=== PATIENT | male | born 1970 | race Caucasian/White ===

== ENCOUNTER 2018-05-22 07:25 | Day surgery (SDC) | payer BC ==
[2018-05-21 11:39] VITALS: BMI 29.2
[2018-05-22 10:00] VITALS: TEMP 97.5
[2018-05-22 10:42] VITALS: BP 124/78; PULSE 55
--- NOTE | 2018-05-27 14:54 | PATH ---
Surgical Pathology Report Patient Name: KENDAL HOLLAND [facility]. Rec. #: [id number] /Age/Gender: 1970 (Age: 48) / M Account: [id number] Location: [facility]-ENDOSCOPY Taken: 05/22/2018 Received: 05/22/2018 Reported: 05/27/2018 Physicians: Natanael Alejandre M.D. Specimen(s) Received A: SECOND PORTION DUODENUM AND DUODENAL BULB B: ANTRUM C: DISTAL ESOPHAGUS Clinical History Abdominal pain/colon cancer screening Postoperative findings: Hiatal hernia, GERD, normal colon, colon cancer screening Final Diagnosis A., SECOND PORTION DUODENUM AND DUODENAL BULB, BIOPSY: MODERATE CHRONIC DUODENITIS. B. ANTRUM, BIOPSY: MILD CHRONIC GASTRITIS. IMMUNOSTAIN IS NEGATIVE FOR H. PYLORI ORGANISMS. C. DISTAL ESOPHAGUS, BIOPSY: MILDLY HYPERPLASTIC ESOPHAGEAL (SQUAMOUS) MUCOSA; THIS FEATURE MAY BE SEEN IN ASSOCIATION WITH GASTROESOPHAGEAL REFLUX DISEASE. NO COLUMNAR EPITHELIUM/INTESTINAL METAPLASIA IS IDENTIFIED. Electronically Signed Letty Llanos M.D. Gross Description A. Received in formalin, labeled "second portion duodenal bulb" are 3 coley, irregular portions of soft tissue measuring 0.3-0.5 cm. in greatest dimension. The specimens are submitted in toto in one cassette. B. Received in formalin, labeled "antrum" are 2 coley, irregular portions of soft tissue measuring 0.2 and 0.5 cm. in greatest dimension. The specimens are submitted in toto in one cassette. C. Received in formalin, labeled "distal esophagus" are 2 coley, irregular portions of soft tissue measuring 0.2 and 0.7 cm. in greatest dimension. The specimens are submitted in toto in one cassette. MLSZ/05/22/2018 sanml/05/22/2018
== END 2018-05-22 10:30 | disposition home or self-care (01) ==
LOC: JASU-ENDO 07:25
PROVIDERS: ATTEND Internal Medicine Gastroenterology
PROC: 0DB38ZX Excision of Lower Esophagus, Via Natural or Artificial Opening Endoscopic, Diagnostic (ICD-10-PCS; 2018-05-22)
PROC: 0DB68ZX Excision of Stomach, Via Natural or Artificial Opening Endoscopic, Diagnostic (ICD-10-PCS; 2018-05-22)
PROC: 0DJD8ZZ Inspection of Lower Intestinal Tract, Via Natural or Artificial Opening Endoscopic (ICD-10-PCS; principal; 2018-05-22 08:30)
DX: Z12.11 Encounter for screening for malignant neoplasm of colon (principal); K64.8 Other hemorrhoids; K21.0 Gastro-esophageal reflux disease with esophagitis; K44.9 Diaphragmatic hernia without obstruction or gangrene
CPT/HCPCS: 43239; G0121; 88305-TC; 88342-TC

== ENCOUNTER 2019-10-25 06:14 | Emergency (ER) | payer OTHER, BC ==
[2019-10-25 06:41] VITALS: BP 133/88; PULSE 85; TEMP 98.6; BMI 27.2
--- NOTE | 2019-10-25 07:49 | PDOC ---
Attending Attestation - Resident Resident Name: Alma Mcfarland - ED Attending Attestation I have performed the following: I have examined & evaluated the patient, The case was reviewed & discussed with the resident, I agree w/resident's findings & plan, Exceptions are as noted - HPI HPI: 10/25/19 07:24 49y M no pmhx presents with complaint of back pain. The patient was shovelling dirt yesterday when working and developed L sided non radiating back pain about 1 hour into his work day. There was no associated n/v, f/c, numbness/tingling/waekness, urinary or bowel incontinence. The patient has not taken any medications for his pain. No other injuries or pain/discomfort. - Physicial Exam PE: 10/25/19 07:51 GENERAL: The patient is awake, alert, and fully oriented, Nontoxic - in no acute distress. HEAD: Normocephalic, atraumatic. BACK: Mild R lower parapsinal back tenderness, no midline tenderness, crepitus, erythema/induration/fluctuance, no rashes. EXTREMITIES: Normal range of motion, no edema. NEUROLOGICAL: No facial assymetry, Normal speech, PSYCH: Normal mood, normal affect. SKIN: Warm, Dry, normal turgor, - Medical Decision Making 10/25/19 07:52 suspect muscle strain no red flags or signs of cauda equina will give lidoderm/toradol will dc with rest/nsaids/muscle relaxant will dc with pmd fu return precautions were discussed Discharge - Discharge Information Problems reviewed: Yes Clinical Impression/Diagnosis: Mechanical low back pain, Lumbar paraspinal muscle spasm Strain of lumbar paraspinal muscle Qualifiers: Encounter type: initial encounter Qualified Code(s): S39.012A - Strain of muscle, fascia and tendon of lower back, initial encounter Condition: Improved Disposition: HOME - Follow up/Referral Referrals: Tod Pablo MD [Primary Care Provider] - - Patient Discharge Instructions Patient Printed Discharge Instructions: DI for Muscle Strain Additional Instructions: You were seen in the ED for complaints of right sided lower back pain. In the ED you were evaluated with physical exam. Your results were concerning for right lower back muscle spasm/strain. There does not appear to be an acute need for immediate hospitalization. You were given flexeril (muscle relaxer), toradol (pain medication), and a lidocaine patch. You are advised to follow up with your Primary Care Physician within 1 week; physical therapy may be beneficial. Please do the below stated things for you back pain; please follow up with your PCP: - back rest - ice + warm compress/heat pad to area - pain control with ibuprofen/tylenol - stretching/strengthening exercises Return to the ED immediately if you experience worsening back pain, develop changes in your urination (urinary incontinence), develop numbness/tingling in your extremities/perineum, fevers/chills, or back pain that awakens you at night. - Post Discharge Activity Work/Back to School Note: Back to Work
[2019-10-25] MEDS ORDERED: KETOROLAC TROMETHAMINE 30 MG/1 ML VIAL IM ONE (07:51)
[2019-10-25] MEDS ORDERED: CYCLOBENZAPRINE HCL 10 MG TABLET (FP) PO ONE (07:51)
[2019-10-25] MEDS ORDERED: LIDOCAINE 5% TOPICAL PATCH TP ONE (07:52)
--- NOTE | 2019-10-25 07:54 | PDOC ---
History of Present Illness - General Chief Complaint: Back Pain Stated Complaint: BACK PAIN Time Seen by Provider: 10/25/19 07:21 - History of Present Illness Initial Comments: HPI Pt is a 49 yo M with no significant reported PMH presenting with R sided lower back pain since yesterday. Pt was shoveling dirt yesterday at work and felt pain in his R back (5/10 in severity) so he stopped. Pt reports he rested at home but pain was worse when he woke up this morning (8/10 severity). Pain is "like a spasm", constant and localized to the R lower back; non-radiating. Worse with bending down, leaning to R side, or sleeping R side. Better with standing or laying straight. Pt has not taken any medications for his pain. Pt reports similar back pain in the past after work but never this bad. Denies urinary incontinence, saddle anesthesia, fevers, chills, numbness/tingling of extremities, weakness of extremities, chest pain, SOB, nausea, vomiting, diarrhea, or constipation, dysuria, urinary changes, edema, joint pain, headache or neck pain. PMHX: as in HPI PSHX: see below Meds: pt reports no home medications Allergies: nkda Tob: denies Etoh: 1-2 glasses of wine with dinner; sometimes more on weekends Rec drugs: denies PCP: Dr. Samy MICHELLE GENERAL/CONSTITUTIONAL: No fever or chills. No weakness. HEAD, EYES, EARS, NOSE AND THROAT: No change in vision. No ear pain or discharge. No sore throat. CARDIOVASCULAR: No chest pain or shortness of breath RESPIRATORY: No cough, wheezing, or hemoptysis. GASTROINTESTINAL: No nausea, vomiting, diarrhea or constipation. GENITOURINARY: No dysuria, frequency, or change in urination. MUSCULOSKELETAL: No joint or muscle swelling or pain. No neck pain. + R sided back pain SKIN: No rash NEUROLOGIC: No headache, vertigo, loss of consciousness, or change in strength/sensation. ENDOCRINE: No increased thirst. No abnormal weight change HEMATOLOGIC/LYMPHATIC: No anemia, easy bleeding, or history of blood clots. ALLERGIC/IMMUNOLOGIC: No hives or skin allergy. PE GENERAL: Awake, alert, and fully oriented, in no acute distress HEAD: No signs of trauma, normocephalic, atraumatic EYES: PERRLA, EOMI, sclera anicteric, conjunctiva clear ENT: Auricles normal inspection, hearing grossly normal, nares patent, oropharynx clear without exudates. Moist mucosa NECK: Normal ROM, supple, no lymphadenopathy, JVD, or masses LUNGS: No distress, speaks full sentences, clear to auscultation bilaterally HEART: Regular rate and rhythm, normal S1 and S2, no murmurs, rubs or gallops, peripheral pulses normal and equal bilaterally. ABDOMEN: Soft, nontender, normoactive bowel sounds. No guarding, no rebound. No masses palpated. BACK: point tenderness of R lower paraspinal muscles; no midline tenderness; back ROM limited in flexion. SLR negative EXTREMITIES : Normal inspection, Normal range of motion, no edema. No clubbing or cyanosis. NEUROLOGICAL: Cranial nerves II through XII grossly intact. Normal speech, normal gait, no focal sensorimotor deficits SKIN: Warm, Dry, normal turgor, no rashes or lesions noted 10/25/19 07:57 10/25/19 08:37 Past History - Medical History Allergies/Adverse Reactions: Allergies Allergy/AdvReac Type Severity Reaction Status Date / Time No Known Allergies Allergy Verified 03/15/11 17:44 Home Medications: Ambulatory Orders Mag Carb/Aluminum Hydrox/Algin [Gaviscon Liquid] 30 ml PO Q4H PRN #355 oz 05/22/18 Pantoprazole Sodium 40 mg PO HS #90 tablet. 05/22/18 Pantoprazole Sodium [Protonix] 40 mg PO HS #30 tablet. 05/22/18 Anemia: No Asthma: No Cancer: No Cardiac Disorders: No CVA: No COPD: No CHF: No Dementia: No Diabetes: No GI Disorders: Yes (PEPTIC ULCER AGE 19) Disorders: No HTN: No Hypercholesterolemia: Yes Liver Disease: No Seizures: No Thyroid Disease: No - Psycho-Social/Smoking History Smoking History: Never smoked Have you smoked in the past 12 months: No If you are a former smoker, when did you quit?: 1993 - Substance Abuse Hx (Audit-C & DAST Scrn) How often the patient has a drink containing alcohol: 2-4 times / month Score: In Men: 4 or > Positive; In Women: 3 or > Positive: 2 Screen Result (Pos requires Nsg. Audit-10AR): Negative In the last yr the pt used illegal drug/Rx for NonMed reason: No Score: Yes response is considered Positive: 0 Screen Result (Positive result requires Nsg. DAST-10): Negative *Physical Exam - Vital Signs Last Vital Signs Temp Pulse Resp BP Pulse Ox 98.6 F 85 18 133/88 99 10/25/19 06:39 10/25/19 06:39 10/25/19 06:39 10/25/19 06:39 10/25/19 06:39 Medical Decision Making - Medical Decision Making MDM Pt is a 49 yo M with no significant reported PMH presenting with R sided lower back pain since yesterday after strenuous physical activity. DDX including but not limited to: lumbar muscle strain, herniated disc, vertebral fracture, W/U: - physical exam TX: - IM toradol - lidocaine patch - flexeril Patient stable for discharge. Informed of all lab and imaging results. Given follow up instructions and strict return precautions. Patient expressed understanding and agree to plan. Pt will be picked up by daughter as he received flexeril. 10/25/19 08:37 Discharge - Discharge Information Problems reviewed: Yes Clinical Impression/Diagnosis: Mechanical low back pain, Strain of lumbar paraspinal muscle, Lumbar paraspinal muscle spasm Condition: Improved Disposition: HOME - Admission No - Follow up/Referral Referrals: Tod Pablo MD [Primary Care Provider] - - Patient Discharge Instructions Patient Printed Discharge Instructions: DI for Muscle Strain Additional Instructions: You were seen in the ED for complaints of right sided lower back pain. In the ED you were evaluated with physical exam. Your results were concerning for right lower back muscle spasm/strain. There does not appear to be an acute need for immediate hospitalization. You were given flexeril (muscle relaxer), toradol (pain medication), and a lidocaine patch. You are advised to follow up with your Primary Care Physician within 1 week; physical therapy may be beneficial. Please do the below stated things for you back pain; please follow up with your PCP: - back rest - ice + warm compress/heat pad to area - pain control with ibuprofen/tylenol - stretching/strengthening exercises Return to the ED immediately if you experience worsening back pain, develop changes in your urination (urinary incontinence), develop numbness/tingling in your extremities/perineum, fevers/chills, or back pain that awakens you at night. - Post Discharge Activity Work/Back to School Note: Back to Work
[2019-10-25] MEDS ORDERED: CYCLOBENZAPRINE HCL 10 MG TABLET (FP) ONE (08:02)
[2019-10-25] MEDS ORDERED: KETOROLAC TROMETHAMINE 30 MG/1 ML VIAL ONE (08:03)
[2019-10-25] MEDS ORDERED: LIDOCAINE 5% TOPICAL PATCH ONE (08:03)
[2019-10-25] MEDS ORDERED: LIDOCAINE PATCH REMOVAL MC SCH (22:00)
== END 2019-10-25 08:20 | disposition home or self-care (01) ==
LOC: JER 06:14
PROC: 3E0233Z Introduction of Anti-inflammatory into Muscle, Percutaneous Approach (ICD-10-PCS; principal; 2019-10-25)
DX: S39.012A Strain of muscle, fascia and tendon of lower back, initial encounter (principal)
CPT/HCPCS: 99284-25